=== PATIENT | female | born 1940 | race Two or more races ===

== ENCOUNTER 2024-09-16 18:30 | Emergency (ER) | payer OTHER ==
[~2024-09-16] VITALS: Ht 157.5 cm; Wt 68.5 kg
[2024-09-16] MEDS ORDERED: CAROSPIR25 MG/5 ML PO (18:50)
[2024-09-16] MEDS ORDERED: GLIMEPIRIDE4 M1 PO (18:50)
[2024-09-16] MEDS ORDERED: BENICAR5 MG PO (18:50)
[2024-09-16] MEDS ORDERED: ELIQUIS5 MG PO (18:51)
[2024-09-16] MEDS ORDERED: SYNTHROID150 MCG PO (18:51)
[2024-09-16] MEDS ORDERED: PROTONIX40 MG PO (18:51)
[2024-09-16] MEDS ORDERED: FUROSEMIDE20 MG PO (18:51)
[2024-09-16] MEDS ORDERED: ATORVASTATIN CA20 MG PO (18:51)
[2024-09-16] MEDS ORDERED: PEPCID AC20 MG PO ×2 (18:52→23:21)
[2024-09-16] MEDS ORDERED: FAMOtidine 10 MG/ML (4ML VIAL) IV ONE (19:30)
[2024-09-16] MEDS ORDERED: MEPERIDINE HCL/PF 50 MG/ML VIAL IV ONE (19:30)
[2024-09-16 19:49] LABS: HEMATOCRIT 45.1 % (36.0-45.00); HEMOGLOBIN 15.2 g/dL (12.0-15.00); MEAN CELL VOLUME 90.8 fL (80.00-100.00); MEAN CORPUSCULAR HEMOGLOBIN 30.6 pg (27.00-32.0); MEAN CORPUSCULAR HGB CONC 33.7 g/dl (32.0-36.0); PLATELET COUNT 293 K/uL (150-450); RED BLOOD COUNT 4.97 M/uL (4.00-6.00); RED CELL DISTRIBUTION WIDTH 15.1 % (11.5-14.5)
[2024-09-16 20:12] LABS: INR 1.08; PARTIAL THROMBOPLASTIN TIME 26.2 SECONDS (22.0-34.0); PROTHROMBIN TIME 11.7 SECONDS (9.0-11.5)
[2024-09-16 20:18] LABS: ALBUMIN 4.5 gm/dL (3.4-5.0); BILIRUBIN TOTAL 3.32 mg/dL (0.3-1.2); BILIRUBIN,CONJUGATED 2.47 mg/dL (0.0-0.2); BILIRUBIN,UNCONJUGATED 0.85 mg/dL (0.0-0.6); CALCIUM 10.4 mg/dL (8.5-10.1); CREATININE SERUM 0.87 mg/dL (0.55-1.02); GFR 62.03; GLOBULINA 4.7 G/DL (2.4-3.5); POTASSIUM 3.87 mEq/L (3.5-5.1); TOTAL PROTEIN 9.2 gm/dL (6.4-8.2)
[2024-09-16 21:26] LABS: PH,URINE 6.5 (5.0-8.0); URINE APPEARANCE Clear; URINE BILIRRUBIN Small (NEGATIVE); URINE BLOOD Negative; URINE COLOR Dark Yellow; URINE GLUCOSE Negative (NEGATIVE); URINE KETONE Negative (NEGATIVE); URINE LEUKOCYTE Large; URINE NITRATE Negative; URINE PROTEIN Negative (NEGATIVE)
[2024-09-16 21:30] LABS: URINE BACTERIA 764.6 uL (0.0-1933); URINE EPITHELIAL CELLS 51.6 uL (0.0-38.8); URINE RBC 4.7 uL (0.0-20.8)
[2024-09-16 21:46] LABS: URINE CAST 0.45 uL (0.0-1.40)
[2024-09-16 21:47] LABS: URINE MUCUS MODERATE
[2024-09-16] MEDS ORDERED: CEFTRIAXONE SODIUM 1,000 MG VIAL IV ONE (22:00)
[2024-09-16] MEDS ORDERED: BACTRIM DS TAB1 EACH PO (23:21)
[2024-09-16] MEDS ORDERED: DOLOGESIC-DF 51 EACH PO (23:21)
== END 2024-09-16 23:37 | disposition home or self-care (01) ==
LOC: ER 18:32
PROVIDERS: General Practice
DX: M54.6 Pain in thoracic spine (principal); N39.0 Urinary tract infection, site not specified; Z88.6 Allergy status to analgesic agent; K21.9 Gastro-esophageal reflux disease without esophagitis; E03.8 Other specified hypothyroidism; I50.9 Heart failure, unspecified; E11.9 Type 2 diabetes mellitus without complications; Z79.84 Long term (current) use of oral hypoglycemic drugs
CPT/HCPCS: 36415; 71250; 74176; 93005; 96365; 99284; J0696; J3490